=== PATIENT | male | born 1965 | race Caucasian/White ===

== ENCOUNTER 2024-04-24 06:20 | Day surgery (SDC) | payer BC, SELFPAY ==
[2024-04-12 08:46] VITALS: BMI 31.4
[2024-04-12 09:58] LABS: Hematocrit 40.9 % (39.0-52.0); Hemoglobin 14.5 g/dL (13.0-18.0); Mean Corp Hgb Conc. 35.5 g/dL (33.0-37.0); Mean Corpuscular Hgb 31.9 pg (27.0-31.0); Mean Corpuscular Volume 90.1 fL (80.0-94.0); Mean Platelet Volume 9.8 fL (7.4-10.4); Platelet Count 275 10^3/uL (130-400); Red Blood Cell Count 4.54 10^6/uL (4.70-6.10); Red Cell Dist. Width 12.5 % (11.5-14.5); White Blood Cell Count 7.4 10^3/uL (4.8-10.8)
[2024-04-12 10:11] LABS: Blood Urea Nitrogen 18 mg/dl (9-20); Calcium 9.8 mg/dl (8.4-10.2); Carbon Dioxide 24 mmol/L (22-30); Chloride 106 mmol/L (98-107); Estimated Creatinine Clearance > 125 ml/min; Glucose 93 mg/dl (70-99); Potassium 4.4 mmol/L (3.5-5.1); Sodium 140 mmol/L (135-145); eGFR > 60.00
[2024-04-24] VITALS (7 sets, daily range): BP systolic 128–160; BP diastolic 74–86; BMI 31.4
[2024-04-24] MEDS: NORMOSOL-R 1000 IV (12:58)
[2024-04-24] MEDS: TYLENOL 1000 MG PO (12:58)
== END 2024-04-24 16:24 | disposition home or self-care (01) ==
LOC: SDS 06:20
PROVIDERS: ATTENDING PHYSICIAN Surgery; FAMILY PHYSICIAN Family Medicine
DX: K42.9 Umbilical hernia without obstruction or gangrene (principal)
CPT/HCPCS: 49591; 36415; 80048; 85027; 93005

== ENCOUNTER → 2024-08-07 06:55 | Outpatient (REF) | payer BC, SELFPAY | LOC: MRI 3T 06:55 | PROVIDERS: ATTENDING PHYSICIAN Family Medicine | DX: M54.12 Radiculopathy, cervical region (principal); R29.898 Other symptoms and signs involving the musculoskeletal system | CPT/HCPCS: 72141 ==

== ENCOUNTER → 2024-10-03 17:03 | Outpatient (REF) | payer BC, SELFPAY | LOC: PAVMRI 17:03 | PROVIDERS: ATTENDING PHYSICIAN Family Medicine | DX: M54.12 Radiculopathy, cervical region (principal); R93.89 Abnormal findings on diagnostic imaging of other specified body structures | CPT/HCPCS: 72146 ==

== ENCOUNTER → 2025-05-16 15:13 | Outpatient (REF) | payer BC, SELFPAY | LOC: MRI 3T 15:13 | PROVIDERS: ATTENDING PHYSICIAN Ophthalmology; FAMILY PHYSICIAN Family Medicine | DX: H47.012 Ischemic optic neuropathy, left eye (principal) | CPT/HCPCS: 70543; A9575 ==

== ENCOUNTER → 2025-08-12 19:30 | Outpatient (REF) | payer BC, SELFPAY | LOC: MRI 19:30 | PROVIDERS: ATTENDING PHYSICIAN Psychiatry & Neurology Neurology; FAMILY PHYSICIAN Family Medicine; REFERRING PHYSICIAN Ophthalmology | DX: H46.9 Unspecified optic neuritis (principal) | CPT/HCPCS: 70543; A9575 ==